=== PATIENT | male | born 1950 | race Caucasian/White ===

== ENCOUNTER 2022-12-27 11:54 | Outpatient (CLI) | payer OTHER, SELFPAY ==
--- NOTE | 2022-12-27 12:36 | USCV_ITS ---
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 No evidence of any significant arterial obstruction, based on the above findings. Dr Bimal Hansen MD [facility] (Electronically Signed) Final Date: 02 January 2023 09:49 S
== END 2022-12-27 11:55 | disposition home or self-care (01) ==
LOC: RAD 12:02
PROVIDERS: PCP Nurse Practitioner Family; Visit Provider Nurse Practitioner Family
DX: I73.9 Peripheral vascular disease, unspecified (principal)
CPT/HCPCS: 93922